=== PATIENT | male | born 1960 | race Caucasian/White ===

== ENCOUNTER 2017-02-14 14:07 | Emergency (ER) | payer SELFPAY ==
[~2017-02-14] VITALS: Ht 177.8 cm; Wt 100.0 kg
[~2017-02-14 14:07] MED LIST: AMOX500T PO; CYCL-36 PO; IBUP-232 PO; LORTA5 PO; NAPR500 PO
[2017-02-14 14:09] VITALS: BP 162/86; PULSE 68; RESP 20; TEMP 98.4; O2SAT 99
--- NOTE | 2017-02-14 14:35 | PD ---
Physical Exam Date Seen by Provider: Feb 14, 2017 Time Seen by Provider: 14:33 Narrative 56 yr old male here with c/o left leg pain and swelling that has been going on intermittently for 3 weeks. Patient says he has a friend who is in the hospital with a severe infection in his lungs and he thinks he has the same issue in his legs. He feels like he had a fever. He has been seen in triage and awaiting bed placement. Data Data Last Documented VS Vital Signs Date Time Temp Pulse Resp B/P Pulse Ox O2 Delivery O2 Flow Rate FiO2 02/14/17 14:09 98.4 68 20 162/86 99 Room Air [facility] Medical Record Reviewed: Yes Supervised Visit with HELEN: No Condition: Stable Lindsay Springer Feb 14, 2017 14:35
[2017-02-14] MEDS ORDERED: KETOROLAC TROMETHAMINE 30 MG/ML (IVP) VIAL IV PUSH ONE (16:15)
[2017-02-14] MEDS ORDERED: CLINDAMYCIN INJ 600 MG in SODIUM CHLORIDE 0.9% INJ 100 ML IV ONE (16:15)
[2017-02-14 16:55] LABS: AUTOMATED NEUTROPHIL # 7.2 TH/MM3 (1.8-7.7); BASOPHIL # 0.1 TH/MM3 (0-0.2); BASOPHIL % 0.5 % (0.0-2.0); EOSINOPHIL # 0.2 TH/MM3 (0-0.4); EOSINOPHIL % 1.4 % (0.0-4.0); HEMATOCRIT 44.6 % (39.0-51.0); HEMO FLAGS DIFF FINAL; LYMPH % 26.3 % (9.0-44.0); MEAN CELL VOLUME 84.8 FL (80.0-100.0); MEAN CORPUSCULAR HEMOGLOBIN 30.1 PG (27.0-34.0); MEAN CORPUSCULAR HGB CONC 35.5 % (32.0-36.0); MONO % 8.9 % (0.0-8.0); NEUT % 62.9 % (16.0-70.0); PLATELET COUNT 222 TH/MM3 (150-450); RED BLOOD COUNT 5.26 MIL/MM3 (4.50-5.90); RED CELL DISTRIBUTION WIDTH 13.5 % (11.6-17.2); WHITE BLOOD COUNT 11.5 TH/MM3 (4.0-11.0)
--- NOTE | 2017-02-14 16:56 | RADRPT ---
EXAM DATE/TIME: 02/14/2017 16:26 [facility] COMPARISON: No previous studies available for comparison. INDICATIONS : Patient has been experiencing swelling and pain in left foot for three weeks. No injuries. MEDICAL HISTORY : None. SURGICAL HISTORY : None. ENCOUNTER: Initial ACUITY: 3 weeks PAIN SCORE: 9/10 LOCATION: Left lateral Foot. FINDINGS: Three view examination of the left foot demonstrates no soft tissue swelling, dislocation, or fractur e. The tarsal bones appear intact. The interphalangeal and metatarsophalangeal joints are intact. The calcaneus is intact. Bony mineralization is normal. CONCLUSION: Unremarkable examination of the left foot. Andrea Westbrook Jr., MD on February 14, 2017 at 16:51 Board Certified Radiologist. This report was verified electronically.
--- NOTE | 2017-02-14 17:09 | RADRPT ---
EXAM DATE/TIME: 02/14/2017 16:31 [facility] COMPARISON: No previous studies available for comparison. INDICATIONS : Patient is experiencing swelling and pain in lower left leg for three weeks. MEDICAL HISTORY : None. SURGICAL HISTORY : None. ENCOUNTER: Initial ACUITY: 3 weeks PAIN SCORE: 9/10 LOCATION: Left distal lower leg. FINDINGS: No definite fractures, or dislocations are identified. No definite lytic or sclerotic lesion is seen . CONCLUSION: Unremarkable study. Josr Green MD on February 14, 2017 at 17:07 Board Certified Radiologist. This report was verified electronically.
[2017-02-14 17:19] LABS: ANION GAP 10 MEQ/L (5-15); BICARBONATE 24.2 MEQ/L (21.0-32.0); BLOOD UREA NITROGEN 10 MG/DL (7-18); CHLORIDE 107 MEQ/L (98-107); GLOMERULAR FILTRATION RATE 72 ML/MIN (>89); MAGNESIUM 2.2 MG/DL (1.5-2.5); SODIUM (NA) 141 MEQ/L (136-145)
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
[2017-02-14] MEDS ORDERED: POTASSIUM CHLORIDE 20 MEQ CONTROLLED RELEASE TAB PO ONE ×2 (17:30)
[2017-02-14 17:41] VITALS: BP 151/79; PULSE 56; RESP 17; TEMP 98; O2SAT 99
--- NOTE | 2017-02-14 19:53 | RADRPT ---
EXAM DATE/TIME: 02/14/2017 19:14 [facility] COMPARISON: No previous studies available for comparison. INDICATIONS : Left leg pain. MEDICAL HISTORY : Alcohol use. Substance use. Edema lower extremeties. SURGICAL HISTORY : Left ankle surgery. ENCOUNTER: Initial ACUITY: 3 weeks PAIN SCORE: 9/10 LOCATION: Left leg. TECHNIQUE: Venous ultrasound of the leg was performed from the inguinal ligament to the proximal calf. Real-dev e, color Doppler and spectral tracing, compression and augmentation techniques were used. FINDINGS: There is normal compressibility of the deep venous system from the inguinal region to the proximal ca lf. No echogenic clot is seen in the lumen of the common femoral, femoral, popliteal, and posterior tibial veins. There is a normal response of the venous system to proximal and distal augmentation an d respiration. CONCLUSION: Normal examination. Josr Green MD on February 14, 2017 at 19:51 Board Certified Radiologist. This report was verified electronically.
[2017-02-14] MEDS ORDERED: BACT800T5 PO (20:14)
[2017-02-14] MEDS ORDERED: DICL75TA PO (20:14)
--- NOTE | 2017-02-15 12:42 | EKG ---
Date Performed: 02/14/2017 Time Performed: 17:03:43 PTAGE: 56 years EKG: SINUS BRADYCARDIA WITH SINUS ARRHYTHMIA MINIMAL ST DEPRESSION BORDERLINE ECG NO PREVIOUS TRACING DOCTOR: Carlos Enrique Mcarthur Interpretating Date/Time 02/15/2017 12:35:17
== END 2017-02-14 20:35 | disposition home or self-care (01) ==
LOC: NEPE 14:07
DX: L03.116 Cellulitis of left lower limb (principal); R00.2 Palpitations; R94.31 Abnormal electrocardiogram [ECG] [EKG]; Z72.0 Tobacco use
CPT/HCPCS: 73590; 73630; 80048; 83735; 84484; 85025; 86140; 87040; 93005; 93971; 96365; 96375; 99285; E0113; J1885